=== PATIENT | female | born 1960 | race Caucasian/White ===

== ENCOUNTER → 2022-03-16 14:11 | Outpatient (BNVA) | payer OTHER, SELFPAY | PROVIDERS: Family Provider Family Medicine; PCP Family Medicine; Visit Provider Family Medicine | DX: I48.91 Unspecified atrial fibrillation (principal); E78.5 Hyperlipidemia, unspecified; Z73.3 Stress, not elsewhere classified; Z78.9 Other specified health status | CPT/HCPCS: 80053; 80061; 85025 ==

== ENCOUNTER 2022-11-28 12:57 | Outpatient (CLI) | payer OTHER, SELFPAY ==
--- NOTE | 2022-11-28 13:30 | MM_ITS ---
WS: [id number] BILATERAL 3D TOMOSYNTHESIS DIGITAL SCREENING MAMMOGRAPHY WITH CAD CLINICAL INFORMATION: breast cancer screening. HISTORY: Screening mammogram. No current complaints. COMPARISON: None. TECHNIQUE: Bilateral CC and MLO views. FINDINGS: Scattered fibroglandular densities bilaterally. No suspicious focal mass, asymmetry, calcifications, or architectural distortion. No evidence of malignancy. A few incidental punctate calcifications. MM/[place] [id number] IMPRESSION: BI-RADS: 2-Benign FOLLOW UP: 1 Year Follow-up Recommend return to annual screening mammography.
== END 2022-11-28 12:58 | disposition home or self-care (01) ==
LOC: RAD 13:01
PROVIDERS: PCP Family Medicine; Visit Provider Family Medicine
DX: Z12.31 Encounter for screening mammogram for malignant neoplasm of breast (principal)
CPT/HCPCS: 77063; 77067

== ENCOUNTER → 2023-05-25 11:54 | Outpatient (BNVA) | payer OTHER, SELFPAY | PROVIDERS: PCP Clinical Nurse Specialist Adult Health; Visit Provider Clinical Nurse Specialist Adult Health | DX: I10 Essential (primary) hypertension (principal) | CPT/HCPCS: 80053; 80061; 84443; 85025 ==

== ENCOUNTER 2023-06-07 11:59 | Outpatient (CLI) | payer OTHER, SELFPAY ==
--- NOTE | 2023-06-07 12:30 | US_ITS ---
WS: [id number] THYROID ULTRASOUND HISTORY: swelling on neck, right side of trachea COMPARISON: None available. Right lobe: 1.8 cm x 1.7 cm x 4.7 cm (w x ap x l). Volume: 7.3 cm3. Enlarged heterogeneous RIGHT thyroid. There is mild variability in echogenicity with a few small nodu les scattered throughout. There is no discrete mass and no increased vascularity. Left lobe: 1.5 cm x 1.4 cm x 4.4 cm (w x ap x l). Volume: 4.7 cm3. Normal size and echotexture. No significant or dominant nodules are present. Isthmus: 0.3 cm. Small bilateral cervical chain lymph nodes. IMPRESSION: 1. Mildly enlarged heterogeneous RIGHT thyroid. Probably due to goiter. There is no well-defined disc rete nodule or mass. 2. Normal LEFT thyroid.
== END 2023-06-07 12:00 | disposition home or self-care (01) ==
PROVIDERS: PCP Clinical Nurse Specialist Adult Health; Visit Provider Clinical Nurse Specialist Adult Health
DX: E04.1 Nontoxic single thyroid nodule (principal); E04.9 Nontoxic goiter, unspecified
CPT/HCPCS: 76536

== ENCOUNTER 2024-01-09 13:37 | Outpatient (CLI) | payer OTHER, SELFPAY ==
--- NOTE | 2024-01-09 13:45 | US_ITS ---
WS: [id number] ULTRASOUND THYROID TECHNIQUE: Ultrasound of the thyroid. CLINICAL INFORMATION: thyroid goiter COMPARISON: 2022 FINDINGS: Thyroid: Right and left thyroid lobes are slightly enlarged with micronodular heterogeneous echotextu re similar to previous. No dominant thyroid nodules are present. Right thyroid lobe: 4.3 cm x 1.8 cm x 2.1 cm Left thyroid lobe: 4.3 cm x 1.4 cm x 1.7 cm. Isthmus: 0.4 mm. Cervical lymphadenopathy: None. US/US thyroid [id number] IMPRESSION: 1. Slightly micronodular heterogeneous thyroid echotexture. 2. No suspicious thyroid nodules visualized.
== END 2024-01-09 13:38 | disposition home or self-care (01) ==
LOC: RAD 13:37
PROVIDERS: PCP Clinical Nurse Specialist Adult Health; Visit Provider Otolaryngology
DX: E04.9 Nontoxic goiter, unspecified (principal)
CPT/HCPCS: 76536

== ENCOUNTER → 2025-01-15 11:16 | Outpatient (BNVA) | payer OTHER, SELFPAY | PROVIDERS: PCP Family Medicine; Visit Provider Family Medicine | DX: I10 Essential (primary) hypertension (principal); E78.5 Hyperlipidemia, unspecified; E04.9 Nontoxic goiter, unspecified; N81.4 Uterovaginal prolapse, unspecified; L98.9 Disorder of the skin and subcutaneous tissue, unspecified | CPT/HCPCS: 80053; 80061; 84443; 85025 ==

== ENCOUNTER 2025-01-22 12:34 | Outpatient (CLI) | payer OTHER, SELFPAY ==
--- NOTE | 2025-01-22 13:20 | MM_ITS ---
WS: [id number] BILATERAL 3D TOMOSYNTHESIS DIGITAL SCREENING MAMMOGRAPHY WITH CAD CLINICAL INFORMATION: breast cancer screening HISTORY: Screening mammogram. No current complaints. COMPARISON: 2022 TECHNIQUE: Bilateral CC and MLO views. FINDINGS: Scattered fibroglandular densities bilaterally. No suspicious focal mass, asymmetry, calcifications, or architectural distortion. No evidence of malignancy. Lucent centered calcification RIGHT breast. Vascular calcification. Stable fatty LEFT axillary lymph node MM/MM scr BI tomosynthesis [id number] IMPRESSION: DENSITY: There are scattered areas of fibroglandular density. BI-RADS: 2 - Benign. FOLLOW UP: 1 Year Follow-up Recommend return to annual screening mammography.
== END 2025-01-22 12:35 | disposition home or self-care (01) ==
PROVIDERS: PCP Family Medicine; Visit Provider Family Medicine
DX: Z12.31 Encounter for screening mammogram for malignant neoplasm of breast (principal); R92.323 Mammographic fibroglandular density, bilateral breasts; R92.1 Mammographic calcification found on diagnostic imaging of breast; R59.0 Localized enlarged lymph nodes
CPT/HCPCS: 77063; 77067

== ENCOUNTER 2025-07-09 14:20 | Outpatient (CLI) | payer OTHER, SELFPAY ==
--- NOTE | 2025-07-09 15:00 | XR_ITS ---
WS: [id number] DEXA (DUAL ENERGY X-RAY ABSORPTIOMETRY) Bone mineral density was performed using a [employer] machine. HISTORY: osteoporosis screening COMPARISON: None available. Lumbar spine BMD (L1-L4): 1.157 g/cm2 T score: -0.2 Z score: 0.7 Total hip BMD: Left: 0.941 g/cm2. T score: -0.5 Z score: 0.2 Right: 0.972 g/cm2. T score: -0.3 Z score: 0.4 10 year probability of a major osteoporotic fracture is 8.6%. XR/XR DEXA axial skeleton* [id number] IMPRESSION: NORMAL BONE MINERAL DENSITY based upon the WHO classification for females.
== END 2025-07-09 14:21 | disposition home or self-care (01) ==
LOC: RAD 14:23
PROVIDERS: PCP Family Medicine; Visit Provider Family Medicine
DX: Z13.820 Encounter for screening for osteoporosis (principal); Z78.0 Asymptomatic menopausal state
CPT/HCPCS: 77080